=== PATIENT | male | born 1990 | race Caucasian/White ===

== ENCOUNTER 2018-02-12 14:33 | Emergency (ER) | payer SELFPAY ==
[~2018-02-12] VITALS: Ht 177.8 cm; Wt 70.5 kg
[~2018-02-12 14:33] MED LIST: LORTAB 5 OR; TRIMOX500 MG PO; ZITHROMAX500 MG OR
[2018-02-12 15:26] LABS: HEMATOCRIT 42.9 % (39.0-50.0); HEMOGLOBIN 14.2 g/dl (14.0-18.0); IMMATURE GRANULOCYTES 0.2 % (0.0-1.0); MEAN CELL VOLUME 88.1 fL CALC (80.0-100.0); MEAN CORPUSCULAR HGB 29.2 pG CALC (26.0-32.0); MEAN CORPUSCULAR HGB CONC 33.1 g/L CALC (32.0-36.0); NEUT# 8.86 thou/uL (1.82-7.42); RED BLOOD COUNT 4.87 mill/uL (4.70-6.10); RED CELL DISTRI WIDTH 12.3 % (11.5-15.5)
[2018-02-12 16:00] LABS: ALBUMIN 4.3 g/dL (3.2-5.0); ALKALINE PHOSPHATASE 73 u/l (38-126); ANION GAP 20 (6-22 (CALC)); BUN 18 mg/dL (9-20); BUN/CREATININE RATIO 16 (12-20 (CALC)); CARBON DIOXIDE 23 mmol/l (22-30); CHLORIDE 101 mmol/l (95-108); CREATININE 1.2 mg/dL (0.7-1.3); GFR > 60 ML/MIN (>=60 (CALC)); GFR FOR AFR.AMER. > 60 ML/MIN (>=60 (CALC)); SGOT/AST 71 u/l (17-59); SGPT/ALT 58 u/l (21-72); SODIUM 140 mmol/l (137-146); TOTAL PROTEIN 7.7 g/dL (6.3-8.2)
[2018-02-12 16:48] LABS: COCAINE NEGATIVE (NEGATIVE); TETRAHYDROCANNABIONOL POSITIVE (NEGATIVE)
[2018-02-12 16:49] LABS: BARBITURATES NEGATIVE (NEGATIVE); METHADONE NEGATIVE (NEGATIVE); OXCYCODONE NEGATIVE (NEGATIVE); TRICYLIC ANTIDEPRESSANTS NEGATIVE (NEGATIVE)
[2018-02-12] MEDS ORDERED: CLEOCIN300 MG PO (16:59)
[2018-02-12 17:36] VITALS: BP 134/68
== END 2018-02-12 17:24 | disposition home or self-care (01) | DRG 603 ==
LOC: ED 14:33
PROVIDERS: Emergency Medicine
DX: L03.115 Cellulitis of right lower limb (principal); F17.210 Nicotine dependence, cigarettes, uncomplicated; F19.90 Other psychoactive substance use, unspecified, uncomplicated

== ENCOUNTER 2018-02-16 14:52 | Emergency (ER) | payer SELFPAY ==
[~2018-02-16] VITALS: Ht 177.8 cm; Wt 72.0 kg
[~2018-02-16 14:52] MED LIST changes: +CLEOCIN300 MG PO
[2018-02-16 15:07] VITALS: BP 145/77
== END 2018-02-16 16:08 | disposition left against medical advice (07) | DRG 951 ==
LOC: ED 14:52 → LWOBS 16:08
DX: Z91.19 Patient's noncompliance with other medical treatment and regimen (principal)